=== PATIENT | female | born 2000 | race African-American/Black ===

== ENCOUNTER 2025-01-27 14:09 | Emergency (ER) | payer BC ==
[~2025-01-27] VITALS: Ht 177.8 cm; Wt 68.0 kg
[2025-01-27 14:18] VITALS: O2SAT 100
[2025-01-27] MEDS: SODIUM CHLORIDE 0.9% 1,000 ML IV ONE (16:15)
[2025-01-27] MEDS: DEXAMETHASONE 10 MG/ML VIAL IV ONE (16:15)
[2025-01-27] MEDS: METOCLOPRAMIDE HCL 10MG/2ML VIAL IV ONE (16:15)
[2025-01-27] MEDS: KETOROLAC 15MG/ML VIAL IV ONE (16:15)
[2025-01-27] MEDS: DIPHENHYDRAMINE 50MG/ML VIAL IV ONE (17:02)
[2025-01-27] MEDS ORDERED: ONDA4TAB50 MT (17:10)
[2025-01-27] MEDS ORDERED: ASPI1TAB8 PO (17:10)
[2025-01-27 17:50] VITALS: BP 129/89; PULSE 69; RESP 15; TEMP 37.2; O2SAT 99
== END 2025-01-27 17:51 | disposition home or self-care (01) ==
LOC: ER 14:09
DX: R51.9 Headache, unspecified (principal); Z79.82 Long term (current) use of aspirin; Z79.52 Long term (current) use of systemic steroids
CPT/HCPCS: 96361; 96374; 96375; 99284; J1100; J1200; J1885; J2765; J7030; Z7610

== ENCOUNTER 2025-02-09 00:16 | Emergency (ER) | payer OTHER, BC ==
[~2025-02-09] VITALS: Ht 172.7 cm; Wt 58.0 kg
[~2025-02-09 00:16] MED LIST: ASPI1TAB8 PO; ONDA4TAB50 MT
[2025-02-09 00:20] VITALS: O2SAT 100
[2025-02-09] MEDS: KETOROLAC 15MG/ML VIAL IM ONE (01:43)
[2025-02-09 01:55] VITALS: BP 113/89; PULSE 60; RESP 18; TEMP 36.7; O2SAT 100
== END 2025-02-09 01:55 | disposition home or self-care (01) ==
LOC: ER 00:16
DX: R51.9 Headache, unspecified (principal); M54.2 Cervicalgia; V89.2XXA Person injured in unspecified motor-vehicle accident, traffic, initial encounter; Y93.89 Activity, other specified; Y92.89 Other specified places as the place of occurrence of the external cause; Y99.8 Other external cause status
CPT/HCPCS: 99283; 71045; 81025; 96372; J1885